=== PATIENT | female | born 1970 | race Caucasian/White ===

== ENCOUNTER → 2018-05-04 | Outpatient (CLI) | payer OTHER ==
[~2018-05-04] MED LIST: CBD OIL PO; IBUP1TAB7 PO; PERC5TAB12 PO
--- NOTE | 2018-05-04 16:58 | ECGEPIP ---
Stationary ECG Study [facility] Test Date: 2018-05-04 Pat Name: PRITI PRESTON Department: Room: - Gender: F Brand Lead: CECILIA : 1970 Requested By: BILL Gamez Order Number: [id number] Reading MD: John Yost Measurements Intervals Murdock Rate: 64 P: 21 RI: 187 QRS: -15 QRSD: 88 T: -2 QT: 415 QTc: 429 Interpretive Statements SINUS RHYTHM Somewhat prominent R waves in V2 and V3; lead placement versus RVH/prior PWMI Inferior ST/T-wave abnormalities No prior tracing for comparison. Clinical correlation advised. Electronically Signed On 05-04-2018 16:58:14 EST by John Yost
== END ==
LOC: M RAD 11:40
PROVIDERS: ATTEND Anesthesiology
DX: Z01.818 Encounter for other preprocedural examination (principal); R03.0 Elevated blood-pressure reading, without diagnosis of hypertension; F41.9 Anxiety disorder, unspecified; F32.9 Major depressive disorder, single episode, unspecified

== ENCOUNTER → 2018-05-05 | Outpatient (REF) | payer OTHER ==
[2018-05-05 21:41] LABS: CHLAMYDIA DNA AMPLIFICATION NEGATIVE (NEGATIVE); GC DNA AMPLIFICATION NEGATIVE (NEGATIVE)
== END ==
LOC: M SFHCWAGY 16:17
PROVIDERS: ATTEND Family Medicine
DX: Z12.4 Encounter for screening for malignant neoplasm of cervix (principal); Z11.3 Encounter for screening for infections with a predominantly sexual mode of transmission; N87.0 Mild cervical dysplasia

== ENCOUNTER 2018-05-08 08:15 | Day surgery (SDC) | payer OTHER ==
[~2018-05-08] VITALS: Ht 167.6 cm; Wt 88.2 kg
[~2018-05-08 08:15] MED LIST changes: -IBUP1TAB7 PO; -PERC5TAB12 PO
[2018-05-08] MEDS ORDERED: PROPOFOL 200 MG/20 ML VIAL As Ordered ONE (08:33)
[2018-05-08] MEDS ORDERED: ROCURONIUM BROMIDE 50 MG/5 ML VIAL As Ordered ONE ×2 (08:33→10:08)
[2018-05-08] MEDS ORDERED: LIDOCAINE 2% INJ 100 MG/5 ML SDV (FOR ANES.) As Ordered ONE (08:33)
[2018-05-08] MEDS ORDERED: dexameTHASONE 4 MG/ML 1ML VIAL (J1100) As Ordered ONE (08:33)
[2018-05-08] MEDS ORDERED: fentaNYL 100 MCG/2 ML INJECTION (J3010) As Ordered ONE (08:33)
[2018-05-08] MEDS ORDERED: HYDROmorphone HCL 2 MG/ML 1ML VIAL (J1170) As Ordered ONE ×2 (08:33→09:50)
[2018-05-08] MEDS ORDERED: MIDAZOLAM INJ 2 MG/2 ML VIAL (J2250) As Ordered ONE (08:34)
[2018-05-08 08:41] LABS: HEMATOCRIT 36.7 % (36.0-47.0); HEMOGLOBIN 12.1 g/dl (12.0-15.5); MEAN CORPUSCULAR HEMOGLOBIN 26.7 pg (27.0-33.0); MEAN CORPUSCULAR VOLUME 80.8 fl (80.0-96.0); PLATELET COUNT, AUTOMATED 288 10^3/uL (150-450); RED BLOOD COUNT 4.54 10^6/uL (4.00-5.40); WHITE BLOOD COUNT 8.7 10^3/uL (4.0-10.0)
[2018-05-08] MEDS ORDERED: SUGAMMADEX SODIUM 500 MG/5 ML VIAL (BRIDION) As Ordered ONE ×2 (08:54→10:51)
[2018-05-08] MEDS ORDERED: ceFAZolin 2 GM/D5W 50 ML IV BAG (J0690 PER 500MG) As Ordered ONE (08:55)
[2018-05-08] MEDS ORDERED: ONDANSETRON 4MG/2ML VIAL (J2405) As Ordered ONE ×3 (08:57→10:49)
[2018-05-08] MEDS ORDERED: DOCUSATE SODIUM 100 MG CAP PO SCH (09:00)
[2018-05-08] MEDS ORDERED: LR 1,000 ML IV ONE (09:15)
[2018-05-08] MEDS ORDERED: PERC5TAB12 PO (09:22)
[2018-05-08] MEDS ORDERED: BUPIVACAINE HCL 0.25% 10 ML VIAL As Ordered ONE (09:24)
[2018-05-08] MEDS ORDERED: METHYLERGONOVINE MALEATE 0.2 MG/ML VIAL (J2210) As Ordered ONE (09:24)
[2018-05-08] MEDS ORDERED: METHYLENE BLUE 0.5% (5MG/ML) 10 ML AMP (PROVAYBLUE)(Q9968 PER 1MG) As Ordered ONE (09:25)
[2018-05-08] MEDS ORDERED: METOCLOPRAMIDE INJ 10MG/2ML VIAL (J2765) As Ordered ONE (10:00)
[2018-05-08] MEDS ORDERED: KETOROLAC 60 MG/2 ML VIAL (J1885) As Ordered ONE (10:49)
[2018-05-08] MEDS ORDERED: IBUP1TAB7 PO (11:22)
[2018-05-08] MEDS ORDERED: MORPHINE 4 MG/ML 1ML VIAL/SYRINGE (J2270) IV PRN (11:30)
[2018-05-08] MEDS ORDERED: fentaNYL 100 MCG/2 ML INJECTION (J3010) IV PRN (11:30)
[2018-05-08] MEDS ORDERED: METOCLOPRAMIDE INJ 10MG/2ML VIAL (J2765) IV PRN (11:30)
[2018-05-08] MEDS ORDERED: LR 1,000 ML IV SCH ×2 (11:30)
[2018-05-08] MEDS ORDERED: ONDANSETRON 4MG/2ML VIAL (J2405) IV PRN ×2 (11:30)
[2018-05-08] MEDS ORDERED: PERCOCET 5MG/325MG TAB PO PRN ×3 (11:30)
[2018-05-08] MEDS ORDERED: KETOROLAC 30 MG/ML VIAL (J1885) IV PRN (11:30)
[2018-05-08 16:00] VITALS: BP 155/90
--- NOTE | 2018-05-09 07:49 | RO ---
DATE OF PROCEDURE: 05/08/2018 PREPROCEDURE DIAGNOSIS: Menorrhagia. POSTPROCEDURE DIAGNOSIS: Menorrhagia. PROCEDURE: Robotic-assisted laparoscopic hysterectomy, bilateral salpingo-oophorectomy, cystoscopy. SURGEON: Dr. Jose Alejandro Carrera. YARD LABORER: Cristy Chan NP ANESTHESIA: General endotracheal. ESTIMATED BLOOD LOSS: 100 mL URINE OUTPUT: 100 mL. FINDINGS: Normal size uterus. Normal appearing ovaries and fallopian tubes. Normal appearing abdomen. OPERATIVE SUMMARY: The patient was taken to the operating room where general endotracheal anesthesia was induced. She was prepped and draped in a sterile fashion in dorsal lithotomy position. Lazo catheter was placed. A VCare uterine manipulator was placed. Periumbilical incision was made with a scalpel. A Veress needle was placed through this incision while tightening up on the skin of the abdomen. Intra-abdominal location of Veress needle was assessed with the use of a saline filled syringe. A pneumoperitoneum was created. Veress needle was removed. A 1 mm trocar using Visiport was inserted through this incision. 5 mm scope with camera was used to visualize the abdomen and pelvis. Three 8 mm suprapubic ports were placed out of direct visualization. The patient was placed in Trendelenburg position. The surgical robot was docked at the ports. Using the fenestrated bipolar and the vessel sealer, the IP ligaments, broad ligament attachments, round ligaments were coagulated and incised. The anterior and posterior leaves of the broad ligament were . A bladder flap was created. The vessel sealer was replaced with Monopolar EndoShears. The uterine vessels were coagulated and incised. Colpotomy was created from the upper vagina to the level of the VCare cup. This was extended circumferentially around the upper vagina. The specimen included the uterus, cervix, fallopian tubes and ovaries which were removed through the vagina. The vaginal cuff was closed with #0 V-Loc suture in a running fashion. The pelvis was irrigated and good hemostasis noted. The patient was given methylene dye intravenously. Cystoscopy was performed using a 70 degree cystoscope. Bilateral ureteral jets were identified. There was no injury to the bladder. All instruments were removed. The skin was closed with #4-0 Monocryl in subcuticular sutures. Sponge, instrument and needle counts were correct. Cristy Chan NP, assisted with all aspects of the procedure from beginning to end. She positioned the patient and helped insert the ports. She manipulated the uterus throughout the procedure and removed the specimen at the end of the procedure. She helped close all ports and move the patient.
== END 2018-05-08 16:48 | disposition home or self-care (01) ==
LOC: M SDC 08:15
PROVIDERS: ATTEND Specialist
DX: N92.6 Irregular menstruation, unspecified (principal); I10 Essential (primary) hypertension; F32.9 Major depressive disorder, single episode, unspecified; F41.9 Anxiety disorder, unspecified; Z79.899 Other long term (current) drug therapy
CPT/HCPCS: 36415; 58571; 85027; 86850; 86900; 86901; 88307; J0690; J1100; J1170; J1885; J2250; J2405; J2765; J3010

== ENCOUNTER → 2018-05-29 | Outpatient (REF) | payer OTHER ==
[~2018-05-29] MED LIST changes: +IBUP1TAB7 PO; +PERC5TAB12 PO
== END ==
LOC: M SFHCPLAZ 19:18
PROVIDERS: ATTEND Dermatology
DX: D23.39 Other benign neoplasm of skin of other parts of face (principal); D23.72 Other benign neoplasm of skin of left lower limb, including hip

== ENCOUNTER → 2019-05-02 | Outpatient (REF) | payer OTHER ==
[2019-05-02 17:29] LABS: APPEARANCE, URINE CLEAR (CLEAR); BACTERIA, URINE AUTO NEGATIVE (NEGATIVE); BILIRUBIN, URINE AUTO NEGATIVE (NEGATIVE); BLOOD, URINE BLOOD NEGATIVE (NEGATIVE); COLOR, URINE YELLOW (YELLOW); GLUCOSE, URINE (UA) AUTO NEGATIVE (NEGATIVE); KETONE, URINE AUTO NEGATIVE (NEGATIVE); LEUKOCYTE ESTERASE, URINE AUTO NEGATIVE (NEGATIVE); NITRITE, URINE AUTO NEGATIVE (NEGATIVE); PROTEIN, URINE AUTO NEGATIVE (NEGATIVE); RBC, URINE AUTO 3 /HPF (0-3); SPECIFIC GRAVITY URINE AUTO 1.017 (1.002-1.035); SQUAMOUS EPITHELIAL CELL UR AU 7 /HPF (0-6); UROBILINOGEN, URINE AUTO 0.2 mg/dL (0.0-2.0); WBC, URINE AUTO 1 /HPF (0-3)
== END ==
LOC: M SMT 16:52
PROVIDERS: ATTEND Nurse Practitioner Family
DX: N20.0 Calculus of kidney (principal)

== ENCOUNTER → 2020-09-08 | Outpatient (CLI) | payer OTHER ==
[~2020-09-08] MED LIST changes: +CVS1CAP2 PO; +HYDR-3490 PO; +LISI10TA22 PO; +LISI30TA4 PO; +MULTLIQ7 PO; +VITMTA PO; +vitamin B complex PO
== END ==
LOC: M LABSMTC 11:41
PROVIDERS: ATTEND Anesthesiology
DX: Z20.828 Contact with and (suspected) exposure to other viral communicable diseases (principal); Z11.59 Encounter for screening for other viral diseases

== ENCOUNTER 2020-09-12 11:36 | Day surgery (SDC) | payer OTHER ==
[~2020-09-12] VITALS: Ht 167.6 cm; Wt 88.0 kg
[~2020-09-12 11:36] MED LIST changes: +NS 1,000 ML IV ONE
[2020-09-12] MEDS ORDERED: propofoL 200 MG/20 ML VIAL As Ordered ONE (11:55)
[2020-09-12] MEDS ORDERED: LIDOCAINE 2% 100MG/5ML SDV (FOR ANES.) As Ordered ONE (11:55)
--- NOTE | 2020-09-12 13:13 | ROOR ---
Patient Name: Mariela Ames Procedure Date: 09/12/2020 12:30 PM Date of : 1970 Age: 50 Room: [facility] Gender: Female Note Status: Finalized Procedure: Colonoscopy Indications: Screening for colorectal malignant neoplasm Providers: Jayme Cuevas MD Referring MD: PRAMOD PALAFOX NP Requesting Provider: Medicines: Monitored Anesthesia Care Complications: No immediate complications. Procedure: Pre-Anesthesia Assessment: - Prior to the procedure, a History and Physical was performed, and patient medications and allergies were reviewed. The patient is competent. The risks and benefits of the procedure and the sedation options and risks were discussed with the patient. All questions were answered and informed consent was obtained. Patient identification and proposed procedure were verified by the physician, the nurse and the anesthesiologist in the procedure room. Mental Status Examination: alert and oriented. Airway Examination: normal oropharyngeal airway and neck mobility. Respiratory Examination: clear to auscultation. CV Examination: normal. Prophylactic Antibiotics: The patient does not require prophylactic antibiotics. Prior Anticoagulants: The patient has taken no previous anticoagulant or antiplatelet agents. ASA Grade Assessment: II - A patient with mild systemic disease. After reviewing the risks and benefits, the patient was deemed in satisfactory condition to undergo the procedure. The anesthesia plan was to use monitored anesthesia care (MAC). Immediately prior to administration of medications, the patient was re-assessed for adequacy to receive sedatives. The heart rate, respiratory rate, oxygen saturations, blood pressure, adequacy of pulmonary ventilation, and response to care were monitored throughout the procedure. The physical status of the patient was re-assessed after the procedure. The Colonoscope was introduced through the anus and advanced to the terminal ileum, with identification of the appendiceal orifice and IC valve. The colonoscopy was performed without difficulty. The patient tolerated the procedure well. The quality of the bowel preparation was good. The terminal ileum, ileocecal valve, appendiceal orifice, and rectum were photographed. Scope insertion time was 2 minutes. Scope withdrawal time was 9 minutes. The total duration of the procedure was 12 minutes. Findings: The perianal and digital rectal examinations were normal. The terminal ileum appeared normal. A 8 mm polyp was found in the ascending colon. The polyp was sessile. The polyp was removed with a cold snare. Resection and retrieval were complete. Verification of patient identification for the specimen was done by the physician and nurse using the patient's name, date and medical record number. Estimated blood loss was minimal. Multiple small and large-mouthed diverticula were found in the sigmoid colon. There was no evidence of diverticular bleeding. Non-bleeding external and internal hemorrhoids were found during retroflexion. The hemorrhoids were medium-sized. Impression: - The examined portion of the ileum was normal. - One 8 mm polyp in the ascending colon, removed with a cold snare. Resected and retrieved. - Moderate diverticulosis in the sigmoid colon. There was no evidence of diverticular bleeding. - Non-bleeding external and internal hemorrhoids. Recommendation: - Patient has a contact number available for emergencies. The signs and symptoms of potential delayed complications were discussed with the patient. Return to normal activities tomorrow. Written discharge instructions were provided to the patient. - High fiber diet. - Continue present medications. - Use fiber, for example Citrucel, Fibercon, Konsyl or Metamucil. - Await pathology results. - Repeat colonoscopy in 5 years for surveillance based on pathology results. - Telephone GI clinic for pathology results in 2 weeks. - Return to primary care physician. Procedure Code(s): --- Professional --- 27078, Colonoscopy, flexible; with removal of tumor(s), polyp(s), or other lesion(s) by snare technique Diagnosis Code(s): --- Professional --- Z12.11, Encounter for screening for malignant neoplasm of colon K64.8, Other hemorrhoids K63.5, Polyp of colon K57.30, Diverticulosis of large intestine without perforation or abscess without bleeding CPT copyright 2019 [employer]. All rights reserved. The codes documented in this report are preliminary and upon physician coder review may be revised to meet current compliance requirements. Jayme Cuevas MD Jayme Cuevas MD 09/12/2020 1:12:57 PM Electronically signed by Jayme Cuevas MD Number of Addenda: 0 Note Initiated On: 09/12/2020 12:30 PM Estimated Blood Loss: Estimated blood loss was minimal.
[2020-09-12 13:35] VITALS: BP 119/80
== END 2020-09-12 13:40 | disposition home or self-care (01) ==
LOC: M OPP 11:36
PROVIDERS: ATTEND Internal Medicine Gastroenterology
DX: Z12.11 Encounter for screening for malignant neoplasm of colon (principal); D12.6 Benign neoplasm of colon, unspecified; K57.30 Diverticulosis of large intestine without perforation or abscess without bleeding; K64.8 Other hemorrhoids; Z79.899 Other long term (current) drug therapy; Z80.3 Family history of malignant neoplasm of breast; Z80.1 Family history of malignant neoplasm of trachea, bronchus and lung; Z80.8 Family history of malignant neoplasm of other organs or systems

== ENCOUNTER 2021-07-24 23:11 | Inpatient (IN) | payer OTHER ==
[~2021-07-24] VITALS: Ht 167.6 cm; Wt 93.5 kg
[~2021-07-24 23:11] MED LIST changes: -NS 1,000 ML IV ONE
[2021-07-24] MEDS ORDERED: RISP3TAB20 PO (23:22)
[2021-07-24] MEDS ORDERED: LISI10TA22 PO (23:28)
[2021-07-25 03:47] LABS: BASO # 0.1 10^3/uL (0.0-0.2); BASO % 0.3 % (0.0-1.0); HEMATOCRIT 40.2 % (36.0-47.0); HEMOGLOBIN 14.3 g/dl (12.0-15.5); LYMPH # 2.7 10^3/uL (1.5-5.0); LYMPH % 13.2 % (24.0-44.0); MEAN CORPUSCULAR HEMOGLOBIN 31.2 pg (27.0-33.0); MEAN CORPUSCULAR HGB CONC 35.6 g/dl (32.0-36.5); MEAN CORPUSCULAR VOLUME 87.6 fl (80.0-96.0); MONO % 5.1 % (2.0-8.0); NEUTROPHILS # 16.2 10^3/uL (1.5-8.5); NEUTROPHILS % 80.9 % (36.0-66.0); PLATELET COUNT, AUTOMATED 258 10^3/uL (150-450); RED BLOOD COUNT 4.59 10^6/uL (4.00-5.40); WHITE BLOOD COUNT 20.1 10^3/uL (4.0-10.0)
[2021-07-25 04:14] LABS: CK-MB VALUE MASS < 1.0 NG/ML (<3.6); CPK CREATINE PHOSPHOKINASE 44 U/L (26-192); MB/CK RELATIVE INDEX 2.27 (< OR =4)
[2021-07-25 04:25] LABS: ALBUMIN 3.9 GM/DL (3.2-5.2); BILIRUBIN,DIRECT 0.3 MG/DL (0.0-0.2); CALCIUM LEVEL 9.7 MG/DL (8.5-10.1); CREATININE FOR GFR 1.84 MG/DL (0.55-1.30); GLOMERULAR FILTRATION RATE 30.8 (>51); POTASSIUM SERUM 3.8 MEQ/L (3.5-5.1); TOTAL PROTEIN 8.2 GM/DL (6.4-8.2)
[2021-07-25] MEDS ORDERED: NS 1,000 ML IV ONE ×3 (05:55→10:30)
[2021-07-25] MEDS ORDERED: MORPHINE 10 MG/ML 1ML VIAL As Ordered ONE (06:30)
[2021-07-25] MEDS ORDERED: ONDANSETRON 4MG/2ML VIAL As Ordered ONE (06:30)
[2021-07-25] MEDS ORDERED: ONDANSETRON 4MG/2ML VIAL IV ONE (06:40)
[2021-07-25] MEDS: MORPHINE 4 MG/ML 1ML VIAL/SYRINGE IV PRN ×2 (06:42→07:11)
[2021-07-25] MEDS ORDERED: PIPERACILLIN/TAZOBACTAM SOD 3.375 GM in D5W MINI-BAG PLUS 50 ML IV ONE (08:25)
[2021-07-25] MEDS: NS 1,000 ML IV SCH ×3 (08:39→22:49)
[2021-07-25 08:40] LABS: RSV AMPLIFICATION NEGATIVE (NEGATIVE)
[2021-07-25] MEDS ORDERED: ONDANSETRON 4MG/2ML VIAL IV PRN (09:15)
[2021-07-25] MEDS ORDERED: ACETAMINOPHEN TAB 650MG DOSE (2X325MG) PO PRN (09:15)
[2021-07-25] MEDS ORDERED: ESTR1TAB PO (09:41)
[2021-07-25] MEDS ORDERED: LISI20TA33 PO (09:42)
[2021-07-25] MEDS ORDERED: HOME MED LIST COMPLETE! XX SCH (09:50)
[2021-07-25] MEDS: HEPARIN SOD (PORCINE) 5000UNITS/ML 1ML VIAL/SYRINGE SC SCH ×2 (10:58→20:03)
[2021-07-25 11:00] VITALS: BP 94/59
[2021-07-25] MEDS: PIPERACILLIN/TAZOBACTAM SOD 3.375 GM in D5W MINI-BAG PLUS 50 ML IV SCH ×2 (13:19→20:02)
[2021-07-25] MEDS: MORPHINE 2 MG/ML 1ML VIAL IV PRN ×2 (13:25→22:48)
[2021-07-25 14:00] VITALS: BP 95/60
[2021-07-25 20:45] VITALS: BP 122/66
[2021-07-26] MEDS: PIPERACILLIN/TAZOBACTAM SOD 3.375 GM in D5W MINI-BAG PLUS 50 ML IV SCH ×2 (02:24→07:52)
[2021-07-26 05:47] VITALS: BP 106/63
[2021-07-26] MEDS: NS 1,000 ML IV SCH (06:30)
[2021-07-26 07:15] LABS: HEMATOCRIT 33.1 % (36.0-47.0); HEMOGLOBIN 11.4 g/dl (12.0-15.5); MEAN CORPUSCULAR HEMOGLOBIN 30.8 pg (27.0-33.0); MEAN CORPUSCULAR HGB CONC 34.4 g/dl (32.0-36.5); MEAN CORPUSCULAR VOLUME 89.5 fl (80.0-96.0); PLATELET COUNT, AUTOMATED 183 10^3/uL (150-450); WHITE BLOOD COUNT 8.5 10^3/uL (4.0-10.0)
[2021-07-26 07:36] LABS: CALCIUM LEVEL 8.3 MG/DL (8.5-10.1); CREATININE FOR GFR 1.14 MG/DL (0.55-1.30); GLOMERULAR FILTRATION RATE 53.5 (>51); POTASSIUM SERUM 3.8 MEQ/L (3.5-5.1)
[2021-07-26] MEDS: HEPARIN SOD (PORCINE) 5000UNITS/ML 1ML VIAL/SYRINGE SC SCH ×2 (07:52→20:21)
[2021-07-26 14:00] VITALS: BP 118/77
[2021-07-26] MEDS: metroNIDAZOLE (FLAGYL) 500MG TABLET PO SCH ×2 (16:15→20:20)
[2021-07-26] MEDS: CIPROFLOXACIN 500MG TABLET PO SCH (18:02)
[2021-07-26 20:00] VITALS: BP 127/82
[2021-07-27] MEDS: CIPROFLOXACIN 500MG TABLET PO SCH (05:27)
[2021-07-27 06:00] VITALS: BP 128/84
[2021-07-27 07:47] LABS: HEMOGLOBIN 11.4 g/dl (12.0-15.5); MEAN CORPUSCULAR HEMOGLOBIN 29.9 pg (27.0-33.0); MEAN CORPUSCULAR HGB CONC 33.5 g/dl (32.0-36.5); MEAN CORPUSCULAR VOLUME 89.2 fl (80.0-96.0); PLATELET COUNT, AUTOMATED 189 10^3/uL (150-450); RED BLOOD COUNT 3.81 10^6/uL (4.00-5.40); WHITE BLOOD COUNT 5.9 10^3/uL (4.0-10.0)
[2021-07-27 08:02] LABS: BLOOD UREA NITROGEN 10 MG/DL (7-18); CALCIUM LEVEL 8.7 MG/DL (8.5-10.1); CARBON DIOXIDE LEVEL 26 MEQ/L (21-32); CHLORIDE LEVEL 111 MEQ/L (98-107); CREATININE FOR GFR 0.94 MG/DL (0.55-1.30); GLOMERULAR FILTRATION RATE > 60.0 (>51); GLUCOSE, FASTING 111 MG/DL (70-100); POTASSIUM SERUM 3.9 MEQ/L (3.5-5.1); SODIUM LEVEL 143 MEQ/L (136-145)
[2021-07-27] MEDS ORDERED: METR-265 PO (08:20)
[2021-07-27] MEDS ORDERED: CIPR-249 PO (08:20)
[2021-07-27] MEDS ORDERED: ACID1TAB PO (08:20)
[2021-07-27] MEDS: metroNIDAZOLE (FLAGYL) 500MG TABLET PO SCH (08:51)
[2021-07-27] MEDS: HEPARIN SOD (PORCINE) 5000UNITS/ML 1ML VIAL/SYRINGE SC SCH (08:51)
== END 2021-07-27 10:32 | disposition home health service (06) | DRG 720 ==
LOC: M ED 23:11 → M ED INP 07-25 09:15 → ENRESERV 07-25 09:34 → M MSPAV 07-25 10:42
PROVIDERS: ADMIT Internal Medicine; ATTEND Internal Medicine
DX: A41.9 Sepsis, unspecified organism (principal); N17.9 Acute kidney failure, unspecified; K57.92 Diverticulitis of intestine, part unspecified, without perforation or abscess without bleeding; I10 Essential (primary) hypertension; N39.0 Urinary tract infection, site not specified; Z79.899 Other long term (current) drug therapy; N20.0 Calculus of kidney

== ENCOUNTER 2022-05-10 22:51 | Emergency (ER) | payer OTHER ==
[~2022-05-10] VITALS: Ht 170.2 cm; Wt 86.0 kg
[~2022-05-10 22:51] MED LIST changes: +ACID1TAB PO; +CIPR-249 PO; +ESTR1TAB PO; +LISI20TA33 PO; +METR-265 PO; +RISP3TAB20 PO
[2022-05-10] MEDS ORDERED: LISI30TA4 PO (23:05)
[2022-05-11 07:10] VITALS: BP 118/73
== END 2022-05-11 07:23 | disposition home or self-care (01) ==
LOC: M ED 22:51
DX: S90.935A Unspecified superficial injury of left lesser toe(s), initial encounter (principal); W22.8XXA Striking against or struck by other objects, initial encounter; I10 Essential (primary) hypertension; Z87.442 Personal history of urinary calculi; Z79.811 Long term (current) use of aromatase inhibitors; Z79.899 Other long term (current) drug therapy